=== PATIENT | male | born 1950 | race Caucasian/White ===

== ENCOUNTER 2017-05-30 17:38 | Inpatient (IN) | payer MEDICARE, MEDICAID ==
[2017-05-30] VITALS (10 sets, daily range): BP systolic 117–160; BP diastolic 70–94; PULSE 76–97; RESP 15–23; TEMP 99.1; O2SAT 94–100
[~2017-05-30] VITALS: Ht 175.3 cm; Wt 82.0 kg
[~2017-05-30 17:38] MED LIST: ALBU2.5I INH; AMAN100T PO; CARB25TA PO; CEFU1TAB43 PO; CETI10 PO; MIRA1.5T3 PO; MIRA50TA PO; MIRTA15 PO; MUCI600T PO; MULT-65 PO; POLY1.4S EACH EYE; PROT40TA PO; SENN8.6T15 PO; TYLE500T PO; VITA400C28 PO
[2017-05-30] MEDS ORDERED: SODIUM CHLOR 0.9% 1000 ML INJ 1,000 ML IV ONE (17:43)
[2017-05-30] MEDS ORDERED: LORazepam 2 MG/ML VIAL ONE (17:45)
[2017-05-30] MEDS ORDERED: LORazepam 2 MG/ML VIAL IV PUSH ONE ×3 (17:45→21:15)
--- NOTE | 2017-05-30 18:01 | PD ---
HPI Chief Complaint: altered mental status Time Seen by Provider: 17:43 Travel History International Travel<30 days: No Contact w/Intl Traveler<30days: No History of Present Illness HPI 66-year-old male presents by ambulance as a stroke alert for acute mental status change. The ambulance team was at the facility to lemon picker some on that fell when they grabbed them. They state that 10 minutes before they got there at approximately 508 the staff thought he was less responsive. For them on exam he had a right sided facial droop and would not follow commands so they instituted a stroke alert. History was very limited and they stated per staff he has been there since 2008 and this was an acute change where he normally is more interactive. PFSH Past Medical History Narrative Medical By records Arthritis: No Blood Disorders: No Anxiety: No Depression: No Cancer: No Cardiac Catheterization: Yes Cardiovascular Problems: Yes (PERICARDITIS) Cerebral Palsy: Yes Chemotherapy: No Cerebrovascular Accident: No Developmental Delay: Yes Diminished Hearing: No Endocrine: No Genitourinary: Yes (INCONTINENT) Immune Disorder: No Musculoskeletal: Yes (TREMORS) Neurologic: Yes (HYPOXIC BRAIN INJURY AT ) Parkinson's Disease: Yes Psychiatric: Yes (MENTAL IMPAIRMENT) Reproductive: No Respiratory: No Integumentary: Yes (CELLULITIS) Radiation Therapy: No Seizures: No Past Surgical History Narrative Surgical By records Abdominal Surgery: No AICD: No Body Medical Devices: PARKINSONS Cardiac Surgery: No Ear Surgery: No Endocrine Surgery: No Eye Surgery: No Genitourinary Surgery: No Gynecologic Surgery: No Joint Replacement: No Oral Surgery: Yes (ADDENOIDECTOMY IN 1960) Pacemaker: No Thoracic Surgery: No Tonsillectomy: Yes Other Surgery: Yes (ADENOIDECTOMY) Social History Narrative Social History By records Alcohol Use: No Tobacco Use: Yes Substance Use: No Allergies-Medications (Allergen,Severity, Reaction): Coded Allergies: Haldol (Verified Allergy, Unknown, 05/30/17) *MDRO Multi-Drug Resistant Organism (Verified Adverse Reaction, Unknown, ) 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 Surveillance cultures ordered by Infection Control per Protocol. VRE Screen negative on 08/07/2015 and POSITIVE on08/10/2015. Isolation for MDRO appropriate. Reported Meds & Prescriptions Reported Meds & Active Scripts Active Reported Zyrtec (Cetirizine HCl) 10 Mg Tablet 10 Mg PO HS Vitamin D3 (Cholecalciferol) 5,000 Unit Cap 5,000 Units PO DAILY Sinemet (Carbidopa-Levodopa) 25-100 Mg Tab 2 Tab PO QID Senokot (Sennosides) 8.6 Mg Tab 8.6 Mg PO DAILY PRN Remeron (Mirtazapine) 15 Mg Tab 15 Mg PO HS Artificial Tears Opth Drops (Polyvinyl Alcohol) 1.4% Soln 1 Drop EACH EYE Q8HR PRN Pantoprazole (Pantoprazole Sodium) 20 Mg Tab 20 Mg PO DAILY Normal Saline Flush For F (Sodium Chloride Flush) 0.9 % Inj 10 Ml IV FLUSH DAILY Normal Saline I.v. Flush (Sodium Chloride Flush) 0.9 % Inj 10 Ml IV FLUSH TID Thera-Tabs M (Multiple Vitamins W/ Minerals) 1 Tab Tab 1 Tab PO DAILY Mirapex (Pramipexole Dihydrochloride) 1.5 Mg Tab 1.5 Mg PO QID Myrbetriq (Mirabegron) 50 Mg Tab 50 Mg PO HS Lisinopril 5 Mg Tab 5 Mg PO DAILY Invanz Inj (Ertapenem) 1 Gm Vial 1 Gm IV DAILY Tamsulosin (Tamsulosin HCl) 0.4 Mg Cap 0.4 Mg PO DAILY Duoneb (Ipratropium-Albuterol Neb) 0.5-2.5 Mg/3 Ml Neb 1 Nebule INH Q6HR NEB PRN Coumadin (Warfarin) 2 Mg Tab 2 Mg PO DAILY @ 1700 Coumadin (Warfarin) 5 Mg Tab 5 Mg PO DAILY @ 1700 Atorvastatin (Atorvastatin Calcium) 20 Mg Tab 20 Mg PO HS Amantadine (Amantadine HCl) 100 Mg Tab 100 Mg PO BID Albuterol Neb (Albuterol Sulfate) 2.5 Mg/3 Ml Neb 2.5 Mg NEB Q4HR NEB PRN Mapap (Acetaminophen) 500 Mg Tab 1,000 Mg PO Q4HR PRN Review of Systems ROS Limitations: Altered Mental Status Physical Exam Exam Limitations: Altered Mental Status Narrative GENERAL: Patient unable to sit still SKIN: Warm and dry. HEAD:atraumatic. EYES: No injection or drainage. Pupils equal ENT: No nasal drainage noted. NECK: Supple, trachea midline. CARDIOVASCULAR: Regular rate and rhythm RESPIRATORY: Breath sounds equal bilaterally at apices. No accessory muscle use. GASTROINTESTINAL: Abdomen soft, nondistended. NEUROLOGICAL: Eyes open to voice, moves all extremities, will squeeze both hands when asked, nonverbal Data Data Last Documented VS Vital Signs Date Time Temp Pulse Resp B/P Pulse Ox O2 Delivery O2 Flow Rate FiO2 05/30/17 18:25 77 18 122/70 94 Room Air Orders Diet Npo (05/30/17 Dinner) Activity Bed Rest (05/30/17 ) Electrocardiogram (05/30/17 ) I-Stat Creatinine (05/30/17 17:43) I-Stat Profile (05/30/17 17:43) Prothrombin Time / Inr (Pt) (05/30/17 17:43) Act Partial Throm Time (Ptt) (05/30/17 17:43) Complete Blood Count With Diff (05/30/17 17:43) Fibrinogen (05/30/17 17:43) Creatine Kinase (Cpk) (05/30/17 17:43) Troponin I (05/30/17 17:43) Ua Includes Microscopic (05/30/17 17:43) Drug Screen, Random Urine (05/30/17 17:43) Type And Screen (05/30/17 17:43) Ct Brain W/O Iv Contrast(Rout) (05/30/17 ) Chest, Single Ap (05/30/17 ) Blood Glucose (05/30/17 17:43) Ecg Monitoring (05/30/17 17:43) Neuro Checks Q2HX12,Q4H (05/30/17 17:43) Nursing Bedside Swallow Assess .ONCE (05/30/17 17:43) Iv Access Insert/Monitor (05/30/17 17:43) NPO (05/30/17 17:43) Oximetry (05/30/17 17:43) Sodium Chlor 0.9% 1000 Ml Inj (Ns 1000 M (05/30/17 17:43) Cath For Specimen (05/30/17 17:43) Comprehensive Metabolic Panel (05/30/17 17:43) Lactic Acid Sepsis Protocol (05/30/17 17:43) Magnesium (Mg) (05/30/17 17:43) Phosphorus (Po4) (05/30/17 17:43) Blood Culture (05/30/17 17:43) Lorazepam Inj (Ativan Inj) (05/30/17 17:45) Lorazepam Inj (Ativan Inj) (05/30/17 17:45) Lorazepam Inj (Ativan Inj) (05/30/17 18:00) Mri Brain W/O Contrast (05/30/17 18:09) Mra Brain W/O Contrast (Cow) (05/30/17 18:09) Consult Infectious Disease (05/30/17 ) Urine Culture (05/30/17 18:55) Labs Laboratory Tests Test 05/30/17 05/30/17 17:43 18:25 White Blood Count 6.8 TH/MM3 Red Blood Count 4.11 MIL/MM3 Hemoglobin 13.2 GM/DL Bedside Hemoglobin 13.6 G/DL Hematocrit 38.5 % Bedside Hematocrit 40.0 % Mean Corpuscular Volume 93.7 FL Mean Corpuscular Hemoglobin 32.1 PG Mean Corpuscular Hemoglobin 34.3 % Concent Red Cell Distribution Width 13.6 % Platelet Count 212 TH/MM3 Mean Platelet Volume 8.0 FL Neutrophils (%) (Auto) 66.5 % Lymphocytes (%) (Auto) 19.9 % Monocytes (%) (Auto) 9.3 % Eosinophils (%) (Auto) 3.8 % Basophils (%) (Auto) 0.5 % Neutrophils # (Auto) 4.5 TH/MM3 Lymphocytes # (Auto) 1.4 TH/MM3 Monocytes # (Auto) 0.6 TH/MM3 Eosinophils # (Auto) 0.3 TH/MM3 Basophils # (Auto) 0.0 TH/MM3 CBC Comment DIFF FINAL Differential Comment Prothrombin Time 21.9 SEC Prothromb Time International 1.9 RATIO Ratio Activated Partial 33.4 SEC Thromboplast Time Fibrinogen 439 mg/dL Bedside Sodium 138 MMOL/L Sodium Level 136 MEQ/L Bedside Potassium 5.2 MMOL/L Potassium Level 5.1 MEQ/L Bedside Chloride 101 MMOL/L Chloride Level 104 MEQ/L Carbon Dioxide Level 25.1 MEQ/L Anion Gap 7 MEQ/L Bedside Blood Urea Nitrogen 38 MG/DL Blood Urea Nitrogen 28 MG/DL Creatinine 1.82 MG/DL Bedside Creatinine 1.7 MG/DL Estimat Glomerular Filtration 38 ML/MIN Rate Bedside Glucose 110 MG/DL Random Glucose 104 MG/DL Calcium Level 9.2 MG/DL Phosphorus Level 2.9 MG/DL Magnesium Level 2.4 MG/DL Total Bilirubin 0.5 MG/DL Aspartate Amino Transf 45 U/L (AST/SGOT) Alanine Aminotransferase 11 U/L (ALT/SGPT) Alkaline Phosphatase 84 U/L Total Creatine Kinase 141 U/L Troponin I LESS THAN 0.02 NG/ML Total Protein 7.6 GM/DL Albumin 3.7 GM/DL Urine Color YELLOW Urine Turbidity HAZY Urine pH 6.5 Urine Specific Clark 1.017 Urine Protein 30 mg/dL Urine Glucose (UA) NEG mg/dL Urine Ketones NEG mg/dL Urine Occult Blood SMALL Urine Nitrite NEG Urine Bilirubin NEG Urine Urobilinogen LESS THAN 2.0 MG/DL Urine Leukocyte Esterase MOD Urine RBC 86 /hpf Urine WBC 18 /hpf Urine Amorphous Sediment RARE Urine Bacteria RARE /hpf Urine Hyaline Casts 3 /lpf Urine Mucus FEW /lpf Urine Opiates Screen NEG Urine Barbiturates Screen NEG Urine Amphetamines Screen NEG Urine Benzodiazepines Screen NEG Urine Cocaine Screen NEG Urine Cannabinoids Screen NEG MDM Medical Decision Making Medical Screen Exam Complete: Yes Emergency Medical Condition: Yes Medical Record Reviewed: Yes (past history confirm, prior UTIs noted and admissions reviewed) Interpretation(s) ct brain discussed with the radiologist and looks stable but limited some by motion artifact 1805 CBC & BMP Diagram 05/30/17 17:43 inr 1.9 Last [address] 05/30/17 0000 Signed Impressions: Service Date/Time: Tuesday, May 30, 2017 17:53 - CONCLUSION: No acute disease. Glenn Bernard MD Chest X-Ray 05/30/17 0000 Signed Impressions: Service Date/Time: Tuesday, May 30, 2017 18:01 - CONCLUSION: No acute disease. Glenn Bernard MD EKG shows NSR, no ST elevation or depression, and no arrhythmias. No significant T-wave inversions. Differential Diagnosis UTI, hyponatremia, bleed, renal failure, encephalopathic..... Narrative Course Unable to perform stroke scale on patient given he cannot consistently follow commands. He is moving all extremities and agitated at this time. Ativan will be given to coordinate CT imaging and will discuss with neurology On review of [facility] records he is on Invanz and Bactrim for UTI. In the hospital he was admitted for prior encephalopathy associated with urinary tract infections. He has past history of Parkinson's and prior anoxic brain injury and CP since , this complicates his history. Will continue to monitor. Patient is now sedated but will open eyes to voice after Ativan to coordinate CT. Awaiting MRIs Physician Communication Physician Communication Dr. strange agrees given unable to appropriately exam and moving all extremities and on Coumadin and difficult to determine baseline not a TPA candidate dr strange updated and mri and mra brain ordered stat dr colby to follow lactic acid and mris and admit Tri Gonzalez MD May 30, 2017 18:01
[2017-05-30 18:02] LABS: I-STAT SODIUM 138 MMOL/L (138-146)
[2017-05-30 18:03] LABS: AUTOMATED NEUTROPHIL # 4.5 TH/MM3 (1.8-7.7); BASOPHIL % 0.5 % (0.0-2.0); EOSINOPHIL # 0.3 TH/MM3 (0-0.4); EOSINOPHIL % 3.8 % (0.0-4.0); HEMATOCRIT 38.5 % (39.0-51.0); HEMO FLAGS DIFF FINAL; I-STAT POTASSIUM 5.2 MMOL/L (3.5-4.9); LYMPH % 19.9 % (9.0-44.0); LYMPHOCYTE # 1.4 TH/MM3 (1.0-4.8); MEAN CELL VOLUME 93.7 FL (80.0-100.0); MEAN CORPUSCULAR HEMOGLOBIN 32.1 PG (27.0-34.0); MEAN CORPUSCULAR HGB CONC 34.3 % (32.0-36.0); MONO % 9.3 % (0.0-8.0); NEUT % 66.5 % (16.0-70.0); PLATELET COUNT 212 TH/MM3 (150-450); RED BLOOD COUNT 4.11 MIL/MM3 (4.50-5.90); RED CELL DISTRIBUTION WIDTH 13.6 % (11.6-17.2); WHITE BLOOD COUNT 6.8 TH/MM3 (4.0-11.0)
--- NOTE | 2017-05-30 18:06 | RADRPT ---
EXAM DATE/TIME: 05/30/2017 17:53 [facility] COMPARISON: No previous studies available for comparison. INDICATIONS : Stroke Alert, right facial droop,left side weakness. RADIATION DOSE: 37.49 CTDIvol (mGy) This report was called by Dr. Bernard to Dr. Gonzalez at 6: 03 PM May 30, 2017 MEDICAL HISTORY : Non-responsive. SURGICAL HISTORY : Non-responsive. ENCOUNTER: Initial ACUITY: 1 day PAIN SCALE: 0/10 LOCATION: cranial TECHNIQUE: Multiple contiguous axial images were obtained of the head. Using automated exposure control and adj ustment of the mA and/or kV according to patient size, radiation dose was kept as low as reasonably a chievable to obtain optimal diagnostic quality images. DICOM format image data is available electro nically for review and comparison. FINDINGS: The examination demonstrates patchy hypodensity in the periventricular white matter and bilateral aurora trum semiovale which is stable and characteristic of chronic microvascular ischemic disease. There is no evidence of acute infarct, hemorrhage or mass. Remote right cerebellar infarct. No fractures. CONCLUSION: No acute disease. Glenn Bernard MD on May 30, 2017 at 18:02 Board Certified Radiologist. This report was verified electronically.
--- NOTE | 2017-05-30 18:12 | RADRPT ---
EXAM DATE/TIME: 05/30/2017 18:01 [facility] COMPARISON: CHEST SINGLE AP, August 10, 2015, 5:51. INDICATIONS : Stroke alert. MEDICAL HISTORY : None. SURGICAL HISTORY : None. ENCOUNTER: Initial ACUITY: 1 day PAIN SCORE: Non-responsive. LOCATION: Bilateral chest FINDINGS: There is linear scarring at the bases and cardiomegaly. Osseous structures are intact. CONCLUSION: No acute disease. Glenn Bernard MD on May 30, 2017 at 18:10 Board Certified Radiologist. This report was verified electronically.
[2017-05-30 18:22] LABS: ALT (GPT) 11 U/L (12-78); ANION GAP 7 MEQ/L (5-15); AST (GOT) 45 U/L (15-37); BICARBONATE 25.1 MEQ/L (21.0-32.0); BLOOD UREA NITROGEN 28 MG/DL (7-18); CHLORIDE 104 MEQ/L (98-107); GLOMERULAR FILTRATION RATE 38 ML/MIN (>89); MAGNESIUM 2.4 MG/DL (1.5-2.5); SODIUM (NA) 136 MEQ/L (136-145)
[2017-05-30 18:23] LABS: POTASSIUM 5.1 MEQ/L (3.5-5.1)
[2017-05-30 18:25] LABS: ALKALINE PHOSPHATASE 84 U/L (45-117); CREATINE KINASE 141 U/L (39-308); TOTAL BILIRUBIN ADULT 0.5 MG/DL (0.2-1.0)
[2017-05-30 18:38] LABS: APTT (PATIENT) 33.4 SEC (24.3-30.1); INTERNATIONAL NORMALIZED RATIO 1.9 RATIO; PROTHROMBIN TIME - PATIENT 21.9 SEC (9.8-11.6)
[2017-05-30] MEDS ORDERED: AMAN100T PO (18:39)
[2017-05-30] MEDS ORDERED: ALBU0.08 NEB (18:39)
[2017-05-30] MEDS ORDERED: MAPA500T PO (18:39)
[2017-05-30] MEDS ORDERED: COUM5TAB PO (18:42)
[2017-05-30] MEDS ORDERED: ATOR20TA15 PO (18:42)
[2017-05-30] MEDS ORDERED: COUM2TAB PO (18:43)
[2017-05-30] MEDS ORDERED: TAMS0.4C4 PO (18:45)
[2017-05-30] MEDS ORDERED: IPRASOL INH (18:45)
[2017-05-30] MEDS ORDERED: ERTA1P IV (18:47)
[2017-05-30 18:53] LABS: BACTERIA, URINE RARE /hpf; BLOOD, URINE SMALL (NEG); GLUCOSE,URINE NEG (NEG); HYALINE CAST, URINE 3 /lpf (RARE); KETONE, URINE NEG (NEG); MUCUS URINE FEW /lpf (OCC); NITRITE,URINE NEG (NEG); PH, URINE 6.5 (5.0-8.5); URINE COLOR YELLOW (YELLW/STRAW)
[2017-05-30] MEDS ORDERED: MIRA50TA PO (18:53)
[2017-05-30] MEDS ORDERED: NORMINJ11 IV FLUSH (18:53)
[2017-05-30] MEDS ORDERED: MIRA1.5T3 PO (18:53)
[2017-05-30] MEDS ORDERED: NORM0.9I4 IV FLUSH (18:53)
[2017-05-30] MEDS ORDERED: LISI-519 PO (18:53)
[2017-05-30] MEDS ORDERED: MULT-71 PO (18:53)
[2017-05-30 18:56] LABS: AMPHETAMINE, URINE NEG (NEG); BARBITURATES, URINE NEG (NEG); COCAINE, URINE NEG (NEG)
[2017-05-30] MEDS ORDERED: SENO8.6T5 PO (18:57)
[2017-05-30] MEDS ORDERED: POLY99.0 EACH EYE (18:57)
[2017-05-30] MEDS ORDERED: REME15TA PO (18:57)
[2017-05-30] MEDS ORDERED: PANT20TA2 PO (18:57)
[2017-05-30] MEDS ORDERED: SINE25TA PO (18:57)
[2017-05-30] MEDS ORDERED: CETI-1 PO (19:01)
[2017-05-30] MEDS ORDERED: CHOL5000 PO (19:01)
--- NOTE | 2017-05-30 19:18 | PD ---
Physical Exam Narrative General: The patient is a well-developed well-nourished male slightly agitated on my arrival to the room, O2 saturations are 100%, however the patient appears to have some retractions. Head and Neck exam: Head is normocephalic atraumatic. Cardiovascular: Regular rate and rhythm without murmurs, gallops, or rubs. No pulse deficit to the extremities and simultaneous auscultation and palpation of his radial artery. Lungs: Decreased breath sounds in the bases bilaterally with retractions noted, soft expiratory wheezes audible the left side. No rhonchi, no crackles. Abdomen: Soft, without tenderness to palpation in all 4 quadrants of the abdomen. No guarding, rebound, or rigidity. Normal bowel sounds are audible. No tenderness on palpation of McBurney's point. Neurologic Exam: The patient is slightly agitated, no focal findings on examination, no evidence of facial asymmetry, moving all extremities equally. Skin Exam: No rash noted. Intact skin that is warm and dry. Data Data Last Documented VS Vital Signs Date Time Temp Pulse Resp B/P Pulse Ox O2 Delivery O2 Flow Rate FiO2 05/30/17 18:25 77 18 122/70 94 Room Air Orders Diet Npo (05/30/17 Dinner) Activity Bed Rest (05/30/17 ) Electrocardiogram (05/30/17 ) I-Stat Creatinine (05/30/17 17:43) I-Stat Profile (05/30/17 17:43) Prothrombin Time / Inr (Pt) (05/30/17 17:43) Act Partial Throm Time (Ptt) (05/30/17 17:43) Complete Blood Count With Diff (05/30/17 17:43) Fibrinogen (05/30/17 17:43) Creatine Kinase (Cpk) (05/30/17 17:43) Troponin I (05/30/17 17:43) Ua Includes Microscopic (05/30/17 17:43) Drug Screen, Random Urine (05/30/17 17:43) Type And Screen (05/30/17 17:43) Ct Brain W/O Iv Contrast(Rout) (05/30/17 ) Chest, Single Ap (05/30/17 ) Blood Glucose (05/30/17 17:43) Ecg Monitoring (05/30/17 17:43) Neuro Checks Q2HX12,Q4H (05/30/17 17:43) Nursing Bedside Swallow Assess .ONCE (05/30/17 17:43) Iv Access Insert/Monitor (05/30/17 17:43) NPO (05/30/17 17:43) Oximetry (05/30/17 17:43) Sodium Chlor 0.9% 1000 Ml Inj (Ns 1000 M (05/30/17 17:43) Cath For Specimen (05/30/17 17:43) Comprehensive Metabolic Panel (05/30/17 17:43) Lactic Acid Sepsis Protocol (05/30/17 17:43) Magnesium (Mg) (05/30/17 17:43) Phosphorus (Po4) (05/30/17 17:43) Blood Culture (05/30/17 17:43) Lorazepam Inj (Ativan Inj) (05/30/17 17:45) Lorazepam Inj (Ativan Inj) (05/30/17 17:45) Lorazepam Inj (Ativan Inj) (05/30/17 18:00) Mri Brain W/O Contrast (05/30/17 18:09) Mra Brain W/O Contrast (Cow) (05/30/17 18:09) Consult Infectious Disease (05/30/17 ) Urine Culture (05/30/17 18:55) (Hub Use Only)Inp Phy Cons/Ref (05/30/17 ) Ceftriaxone Inj (Rocephin Inj) (05/30/17 19:30) Lorazepam Inj (Ativan Inj) (05/30/17 21:15) Sodium Chloride 0.9% Flush (Ns Flush) (05/30/17 21:15) Albuterol-Ipratropium Neb (Duoneb Neb) (05/30/17 21:15) Admit Order (Ed Use Only) (05/30/17 21:21) Labs Laboratory Tests Test 05/30/17 05/30/17 05/30/17 05/30/17 17:43 18:21 18:25 18:31 White Blood Count 6.8 TH/MM3 Red Blood Count 4.11 MIL/MM3 Hemoglobin 13.2 GM/DL Bedside Hemoglobin 13.6 G/DL Hematocrit 38.5 % Bedside Hematocrit 40.0 % Mean Corpuscular Volume 93.7 FL Mean Corpuscular Hemoglobin 32.1 PG Mean Corpuscular Hemoglobin 34.3 % Concent Red Cell Distribution Width 13.6 % Platelet Count 212 TH/MM3 Mean Platelet Volume 8.0 FL Neutrophils (%) (Auto) 66.5 % Lymphocytes (%) (Auto) 19.9 % Monocytes (%) (Auto) 9.3 % Eosinophils (%) (Auto) 3.8 % Basophils (%) (Auto) 0.5 % Neutrophils # (Auto) 4.5 TH/MM3 Lymphocytes # (Auto) 1.4 TH/MM3 Monocytes # (Auto) 0.6 TH/MM3 Eosinophils # (Auto) 0.3 TH/MM3 Basophils # (Auto) 0.0 TH/MM3 CBC Comment DIFF FINAL Differential Comment Prothrombin Time 21.9 SEC Prothromb Time International 1.9 RATIO Ratio Activated Partial 33.4 SEC Thromboplast Time Fibrinogen 439 mg/dL Bedside Sodium 138 MMOL/L Sodium Level 136 MEQ/L Bedside Potassium 5.2 MMOL/L Potassium Level 5.1 MEQ/L Bedside Chloride 101 MMOL/L Chloride Level 104 MEQ/L Carbon Dioxide Level 25.1 MEQ/L Anion Gap 7 MEQ/L Bedside Blood Urea Nitrogen 38 MG/DL Blood Urea Nitrogen 28 MG/DL Creatinine 1.82 MG/DL Bedside Creatinine 1.7 MG/DL Estimat Glomerular Filtration 38 ML/MIN Rate Bedside Glucose 110 MG/DL Random Glucose 104 MG/DL Calcium Level 9.2 MG/DL Phosphorus Level 2.9 MG/DL Magnesium Level 2.4 MG/DL Total Bilirubin 0.5 MG/DL Aspartate Amino Transf 45 U/L (AST/SGOT) Alanine Aminotransferase 11 U/L (ALT/SGPT) Alkaline Phosphatase 84 U/L Total Creatine Kinase 141 U/L Troponin I LESS THAN 0.02 NG/ML Total Protein 7.6 GM/DL Albumin 3.7 GM/DL Blood Type A POSITIVE Antibody Screen NEGATIVE Blood Bank Comment Urine Color YELLOW Urine Turbidity HAZY Urine pH 6.5 Urine Specific [place] 1.017 Urine Protein 30 mg/dL Urine Glucose (UA) NEG mg/dL Urine Ketones NEG mg/dL Urine Occult Blood SMALL Urine Nitrite NEG Urine Bilirubin NEG Urine Urobilinogen LESS THAN 2.0 MG/DL Urine Leukocyte Esterase MOD Urine RBC 86 /hpf Urine WBC 18 /hpf Urine Amorphous Sediment RARE Urine Bacteria RARE /hpf Urine Hyaline Casts 3 /lpf Urine Mucus FEW /lpf Urine Opiates Screen NEG Urine Barbiturates Screen NEG Urine Amphetamines Screen NEG Urine Benzodiazepines Screen NEG Urine Cocaine Screen NEG Urine Cannabinoids Screen NEG Lactic Acid Level 0.9 mmol/L [facility] Medical Record Reviewed: Yes Supervised Visit with SHILPI: No Interpretation(s) Last Impressions Head CT 05/30/17 0000 Signed Impressions: Service Date/Time: Tuesday, May 30, 2017 17:53 - CONCLUSION: No acute disease. Glenn Bernard MD Chest X-Ray 05/30/17 0000 Signed Impressions: Service Date/Time: Tuesday, May 30, 2017 18:01 - CONCLUSION: No acute disease. Glenn Bernard MD Narrative Course During the course of the patients emergency department visit, the patients history, examination, and differential diagnosis were reviewed with the patient. The patient had IV access obtained and blood work sent for analysis. The patient's case was checked out to me by Dr. Gonzalez at the conclusion of her shift. The patient came in as a reported stroke alert due to a change in mental status. Dr. Gonzalez has been in close communication with regarding this patient's case. The patient was not considered to be a candidate for TPA due to being anticoagulated with Coumadin and the overall clinical picture which represented more of a change in mentation then focal findings consistent with an acute stroke. The patient was initially provided normal saline at 70 mL per hour. The patient was noted to be agitated and was given Ativan 1 mg IV in order to obtain his CT scan of the brain. The patients laboratory studies were reviewed and remarkable for a white count of 6.8, hemoglobin 13.2, platelets 212 with 9.3 monocytes, CMP is remarkable for a potassium of 5.1, BUN 28, creatinine 1.82, glucose 110, AST 45, ALT 11, CPK 141, troponin I less than 0.02, lactic acid 0.9, PT 21.9, PTT 33.4, fibrinogen level is 439, urinalysis shows 30 protein, small occult blood, moderate leukocyte esterase, 86 rbc's, 18 wbc's, rare bacteria. Urine drug screen is negative. The patient was given Rocephin 1 g IV due to the suspicious urinalysis findings for urinary tract infection and the patient's known history of having UTIs in the past that caused altered mentation in the patient. Radiology studies were reviewed and remarkable for a chest x-ray that shows no evidence of acute disease. CT scan of the brain shows no acute disease. And MRI/MRA of the brain has been ordered per the request of . An MRI was attempted, however the patient became agitated. An attempt was made to reduce it at the patient with another milligram of Ativan IV. The patient continued to be agitated. The patient reported shortness of breath with lying flat. The patient was brought back to the emergency department and reexamined by me. He was noted to have retractions with expiratory wheezes noted. The patient was given DuoNeb 3. The patient has no focal findings on his examination at this time. The MRI at this point will be held until his acute agitation, altered mentation is improved and/or additional sedation can be provided for MRI completion. [facility] The patients results were discussed with the patient, including the plan of care. I explained that further testing and/ or monitoring is indicated based on the patients history, examination, and/ or laboratory findings. Therefore, I recommended admission for additional evaluation. The patient expressed understanding and was agreeable with this plan. The patient was admitted to the hospital in guarded condition and sent to a bed under the care of the [facility] service. Physician Communication Physician Communication The patient's case was discussed with Dr. Jolly who did agree to admit the patient for further evaluation and treatment at this time. Diagnosis Primary Impression: Altered mental status Qualified Code: R41.0 - Disorientation Additional Impression: Urinary tract infection Admitting Information Admitting Physician Requests: it Selena Hopson MD May 30, 2017 19:18
[2017-05-30] MEDS ORDERED: cefTRIAXone INJ 1,000 MG in SODIUM CHLORIDE 0.9% INJ 100 ML IV ONE (19:30)
[2017-05-30] MEDS: RESP: ALBUTEROL 2.5 MG/IPRATROPIUM 0.5 MG NEB (SCH) INH ×4 (21:15→23:23)
[2017-05-30] MEDS ORDERED: SODIUM CHLORIDE 0.9% FLUSH 10 ML FLUSH IVF PRN (21:15)
[2017-05-30] MEDS ORDERED: NALOXONE HCL 0.4 MG/ML AMP IV PRN (21:30)
[2017-05-30] MEDS ORDERED: SODIUM CHLORIDE 0.9% FLUSH 10 ML FLUSH IV FLUSH PRN (21:30)
[2017-05-30] MEDS ORDERED: RESP: ALBUTEROL 2.5 MG/IPRATROPIUM 0.5 MG NEB (PRN) NEB (22:00)
[2017-05-30] MEDS: CIPROFLOXACIN 400 MG PREMIX 200 ML IV SCH (23:01)
[2017-05-30] MEDS: RESP: ALBUTEROL 2.5 MG/IPRATROPIUM 0.5 MG NEB (SCH) NEB ×2 (23:14→23:23)
[2017-05-30] MEDS ORDERED: FLUMAZENIL 0.5 MG/5 ML VIAL IV PUSH ONE (23:30)
--- NOTE | 2017-05-30 23:37 | HHI.HP ---
[facility] Unknown Admission Diagnosis AMS, UTI, R/O CVA Diagnoses: Chief Complaint: AMS Travel History International Travel<30 Days: No Contact w/Intl Traveler <30 Da: No Traveled to Known Affected Are: No History of Present Illness Written by XIOMARA Santos acting as scribe for [Rik] on 05/30/17 at 23: 37. 66 y/o male with a history of anoxic brain injury at , cerebral palsy, Parkinson, copd, HTN and HLD was brought to the ED as a stroke alert from a nursing facility. Per ED report patient was noted to have a right facial droop and unable to follow commands. Patient is not verbal so history and ROS are limited. No family is at bedside upon examination. The patient was examined at beside, non verbal and not following commands. It is not clear what the patients baseline is. He does have tremors due to Parkinson disease. He is able to slightly arouse to sternal rub, he was given Ativan prior to MRI, and according to ED physician patient was non verbal and agitated at this time. He was having wheezing and tachypnea on examination, additional DuoNeb was given along with Solumedral 125mg IV. Patient appeared to be having a panic attack. Once the room was cleared of people, the patient began to relax. Respirations began to normalize. He will be transferred to the Unit for closer monitoring. According to the EMR patient did have a UTI on 05/21/17 and was being treated with Invanz at the long term. Last hospital visit was 2014 for PNA, records reviewed. Dr. Cavanaugh did see patient in ED and felt he was not a TPA candidate due to history and mental status. He feels the AMS is due to UTI. Review of Systems ROS Limitations: Other ( Limited secondary to history of anoxic brain injury.) Past Family Social History Past Medical History Per EMR Anoxic Brain Injury as a child Cerebral Palsy Parkinson's COPD HLD Past Surgical History Per EMR Tonsillectomy Left Hand Pin Placement Reported Medications Reported Meds & Active Scripts Active Reported Zyrtec (Cetirizine HCl) 10 Mg Tablet 10 Mg PO HS Vitamin D3 (Cholecalciferol) 5,000 Unit Cap 5,000 Units PO DAILY Sinemet (Carbidopa-Levodopa) 25-100 Mg Tab 2 Tab PO QID Senokot (Sennosides) 8.6 Mg Tab 8.6 Mg PO DAILY PRN Remeron (Mirtazapine) 15 Mg Tab 15 Mg PO HS Artificial Tears Opth Drops (Polyvinyl Alcohol) 1.4% Soln 1 Drop EACH EYE Q8HR PRN Pantoprazole (Pantoprazole Sodium) 20 Mg Tab 20 Mg PO DAILY Normal Saline Flush For F (Sodium Chloride Flush) 0.9 % Inj 10 Ml IV FLUSH DAILY Normal Saline I.v. Flush (Sodium Chloride Flush) 0.9 % Inj 10 Ml IV FLUSH TID Thera-Tabs M (Multiple Vitamins W/ Minerals) 1 Tab Tab 1 Tab PO DAILY Mirapex (Pramipexole Dihydrochloride) 1.5 Mg Tab 1.5 Mg PO QID Myrbetriq (Mirabegron) 50 Mg Tab 50 Mg PO HS Lisinopril 5 Mg Tab 5 Mg PO DAILY Invanz Inj (Ertapenem) 1 Gm Vial 1 Gm IV DAILY Tamsulosin (Tamsulosin HCl) 0.4 Mg Cap 0.4 Mg PO DAILY Duoneb (Ipratropium-Albuterol Neb) 0.5-2.5 Mg/3 Ml Neb 1 Nebule INH Q6HR NEB PRN Coumadin (Warfarin) 2 Mg Tab 2 Mg PO DAILY @ 1700 Coumadin (Warfarin) 5 Mg Tab 5 Mg PO DAILY @ 1700 Atorvastatin (Atorvastatin Calcium) 20 Mg Tab 20 Mg PO HS Amantadine (Amantadine HCl) 100 Mg Tab 100 Mg PO BID Albuterol Neb (Albuterol Sulfate) 2.5 Mg/3 Ml Neb 2.5 Mg NEB Q4HR NEB PRN Mapap (Acetaminophen) 500 Mg Tab 1,000 Mg PO Q4HR PRN Allergies: Coded Allergies: Haldol (Verified Allergy, Unknown, 05/30/17) *MDRO Multi-Drug Resistant Organism (Verified Adverse Reaction, Unknown, ) 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 Surveillance cultures ordered by Infection Control per Protocol. VRE Screen negative on 08/07/2015 and POSITIVE on08/10/2015. Isolation for MDRO appropriate. Active Ordered Medications Current Medications Medications (Trade) Dose Ordered Sig/Joann Route Start Time Stop Time Status Last Admin (NS 1000 ml Inj) 1,000 ml @ 70 mls/hr [id number] ONCE IV 05/30/17 17:43 05/31/17 08:00 05/30/17 18:53 (NS Flush) 2 ml UNSCH PRN IV FLUSH 05/30/17 21:30 (NS Flush) 2 ml BID IV FLUSH 05/31/17 09:00 Naloxone HCl 0.4 mg 0.4 mg UNSCH PRN IV 05/30/17 21:30 (Cipro 400 Mg Premix) 200 ml @ 200 mls/hr Q12H IV 05/30/17 23:00 05/30/17 23:01 Family History Unknown family history Social History Per EMR Patient was a pipe smoker, and he currently resides in a SNF Physical Exam Vital Signs Vital Signs Date Time Temp Pulse Resp B/P Pulse Ox O2 Delivery O2 Flow Rate FiO2 05/30/17 23:15 99 Nasal Cannula 3.00 05/30/17 18:25 77 18 122/70 94 Room Air 05/30/17 18:15 96 05/30/17 18:13 76 16 127/91 94 05/30/17 18:03 97 16 151/80 99 05/30/17 17:53 86 15 160/94 99 Room Air 05/30/17 17:43 89 16 127/79 97 Physical Exam GENERAL: This is a well-nourished, non verbal patient. SKIN: No rashes, ecchymoses or lesions. Cool and dry. HEAD: Atraumatic. Normocephalic. EYES: Pupils equal round and reactive. Extraocular motions intact. No scleral icterus. No injection or drainage. ENT: Nose without bleeding, purulent drainage or septal hematoma. Airway patent. NECK: Trachea midline. No JVD or lymphadenopathy. Supple, nontender, no meningeal signs. CARDIOVASCULAR: Regular rate and rhythm without murmurs, gallops, or rubs. RESPIRATORY: Clear to auscultation. Breath sounds equal bilaterally. Auditory wheezed, no rales, or rhonchi. GASTROINTESTINAL: Abdomen soft, non-tender, nondistended. No hepato-splenomegaly , or palpable masses. No guarding. MUSCULOSKELETAL: Upper extremity tremors, rigid bilateral upper extremities. No calf tenderness. NEUROLOGICAL: Awake and alert. Motor and sensory grossly within normal limits. Normal speech. Laboratory Laboratory Tests Test 05/30/17 05/30/17 05/30/17 05/30/17 17:43 18:21 18:25 18:31 White Blood Count 6.8 Red Blood Count 4.11 Hemoglobin 13.2 Bedside Hemoglobin 13.6 Hematocrit 38.5 Bedside Hematocrit 40.0 Mean Corpuscular Volume 93.7 Mean Corpuscular Hemoglobin 32.1 Mean Corpuscular Hemoglobin 34.3 Concent Red Cell Distribution Width 13.6 Platelet Count 212 Mean Platelet Volume 8.0 Neutrophils (%) (Auto) 66.5 Lymphocytes (%) (Auto) 19.9 Monocytes (%) (Auto) 9.3 Eosinophils (%) (Auto) 3.8 Basophils (%) (Auto) 0.5 Neutrophils # (Auto) 4.5 Lymphocytes # (Auto) 1.4 Monocytes # (Auto) 0.6 Eosinophils # (Auto) 0.3 Basophils # (Auto) 0.0 CBC Comment DIFF FINAL Differential Comment Prothrombin Time 21.9 Prothromb Time International 1.9 Ratio Activated Partial 33.4 Thromboplast Time Fibrinogen 439 Bedside Sodium 138 Sodium Level 136 Bedside Potassium 5.2 Potassium Level 5.1 Bedside Chloride 101 Chloride Level 104 Carbon Dioxide Level 25.1 Anion Gap 7 Bedside Blood Urea Nitrogen 38 Blood Urea Nitrogen 28 Creatinine 1.82 Bedside Creatinine 1.7 Estimat Glomerular Filtration 38 Rate Bedside Glucose 110 Random Glucose 104 Calcium Level 9.2 Phosphorus Level 2.9 Magnesium Level 2.4 Total Bilirubin 0.5 Aspartate Amino Transf 45 (AST/SGOT) Alanine Aminotransferase 11 (ALT/SGPT) Alkaline Phosphatase 84 Total Creatine Kinase 141 Troponin I LESS THAN 0.02 Total Protein 7.6 Albumin 3.7 Blood Type A POSITIVE Antibody Screen NEGATIVE Blood Bank Comment Urine Color YELLOW Urine Turbidity HAZY Urine pH 6.5 Urine Specific [place] 1.017 Urine Protein 30 Urine Glucose (UA) NEG Urine Ketones NEG Urine Occult Blood SMALL Urine Nitrite NEG Urine Bilirubin NEG Urine Urobilinogen LESS THAN 2.0 Urine Leukocyte Esterase MOD Urine RBC 86 Urine WBC 18 Urine Amorphous Sediment RARE Urine Bacteria RARE Urine Hyaline Casts 3 Urine Mucus FEW Urine Opiates Screen NEG Urine Barbiturates Screen NEG Urine Amphetamines Screen NEG Urine Benzodiazepines Screen NEG Urine Cocaine Screen NEG Urine Cannabinoids Screen NEG Lactic Acid Level 0.9 Date/Time Procedure Status Source Growth 05/30/17 18:30 Aerobic Blood Culture Received Blood Peripheral Pending 05/30/17 18:30 Anaerobic Blood Culture Received Blood Peripheral Pending Result Diagram: 05/30/17 1743 05/30/17 1743 Imaging Last Impressions Head CT 05/30/17 0000 Signed Impressions: Service Date/Time: Tuesday, May 30, 2017 17:53 - CONCLUSION: No acute disease. Glenn Bernard MD Chest X-Ray 05/30/17 0000 Signed Impressions: Service Date/Time: Tuesday, May 30, 2017 18:01 - CONCLUSION: No acute disease. Glenn Bernard MD Assessment and Plan Problem List: (1) Encephalopathy ICD Code: G93.40 Status: Acute (2) Urinary tract infection ICD Code: N39.0 Status: Acute (3) DUTCH (acute kidney injury) ICD Code: N17.9 Status: Acute (4) COPD exacerbation ICD Code: J44.1 Status: Acute Assessment and Plan 66 y/o male with a history of anoxic brain injury at , cerebral palsy, Parkinson, copd, HTN and HLD was brought to the ED as a stroke alert from a nursing facility. Encephalopathy, likely due to UTI, r/o CVA, patient was a stroke alert Head CT reviewed and unremarkable -MRI/ MRA of brain ordered, unable to complete due to agitation, will try again in AM -Neuro checks -Neurology consult, Dr. Funk -PT/OT/ST -Allow permissive HTN for now UTI, suspect e coli, no leukocytosis Abnormal UA -Urine culture pending -Ciprofloxacin Q12Hr IV -ID consult for recommendations, patient was receiving Invanz IV prior to hospital -CBC in AM COPD exacerbation -Duonebs scheduled and PRN -Solumedrol 125mg IV given x 1, then 40mg Q6hr -O2 as needed Acute Kidney Injury, Creatine 1.8, baseline 1.5, likely dehydration -1L bolus given in ED, Cont IVF -BMP in AM Chronic medical conditions: Hold home medications until mental status improves and Swallow eval complete DVT prophylaxis: DVTs GI prophylaxis: Protonix Discussed Condition With Patient, RN and ED physician Physician Certification 2 Midnight Certification Type: Admission for Inpatient Services Order for Inpatient Services The services are ordered in accordance with Medicare regulations or non- Medicare payer requirements, as applicable. In the case of services not specified as inpatient-only, they are appropriately provided as inpatient services in accordance with the 2-midnight benchmark. Estimated LOS (days): 3 days is the estimated time the patient will need to remain in the hospital, assuming treatment plan goals are met and no additional complications. Post-Hospital Plan: [facility] Irais Foster May 30, 2017 23:37
[2017-05-30] MEDS ORDERED: methylPREDNISolone SOD SUCC 125 MG/2 ML VIAL IV PUSH ONE (23:45)
[2017-05-31] VITALS (8 sets, daily range): BP systolic 98–125; BP diastolic 55–76; PULSE 91–109; RESP 16–31; TEMP 97.6–98.3; O2SAT 83–99
[2017-05-31] MEDS: PANTOPRAZOLE SODIUM 40 MG VIAL IV PUSH SCH ×2 (01:29→17:56)
[2017-05-31] MEDS: SODIUM CHLOR 0.9% 1000 ML INJ 1,000 ML IV SCH (02:06)
[2017-05-31] MEDS: methylPREDNISolone SOD SUCC 40 MG/1 ML VIAL IV PUSH SCH ×2 (07:08→11:30)
[2017-05-31] MEDS: RESP: ALBUTEROL 2.5 MG/IPRATROPIUM 0.5 MG NEB (SCH) NEB ×3 (07:32→21:33)
[2017-05-31 08:18] LABS: AUTOMATED NEUTROPHIL # 6.5 TH/MM3 (1.8-7.7); BASOPHIL % 0.1 % (0.0-2.0); EOSINOPHIL % 0.1 % (0.0-4.0); HEMATOCRIT 40.3 % (39.0-51.0); HEMO FLAGS DIFF FINAL; LYMPH % 6.1 % (9.0-44.0); LYMPHOCYTE # 0.4 TH/MM3 (1.0-4.8); MEAN CELL VOLUME 95.4 FL (80.0-100.0); MEAN CORPUSCULAR HEMOGLOBIN 31.3 PG (27.0-34.0); MEAN CORPUSCULAR HGB CONC 32.8 % (32.0-36.0); MONO % 0.9 % (0.0-8.0); NEUT % 92.8 % (16.0-70.0); PLATELET COUNT 209 TH/MM3 (150-450); RED BLOOD COUNT 4.22 MIL/MM3 (4.50-5.90); RED CELL DISTRIBUTION WIDTH 13.5 % (11.6-17.2)
[2017-05-31 08:46] LABS: BICARBONATE 23.9 MEQ/L (21.0-32.0)
[2017-05-31 08:50] LABS: POTASSIUM 4.5 MEQ/L (3.5-5.1)
[2017-05-31] MEDS: SODIUM CHLORIDE 0.9% FLUSH 10 ML FLUSH IV FLUSH SCH ×2 (09:00→21:00)
--- NOTE | 2017-05-31 09:00 | EKG ---
Date Performed: 05/30/2017 Time Performed: 19:01:52 PTAGE: 66 years EKG: Sinus rhythm NORMAL ECG PREVIOUS TRACING : 08/06/2015 21.34 DOCTOR: Karl Siu Interpretating Date/Time 05/31/2017 08:59:01
--- NOTE | 2017-05-31 10:09 | MB ---
cc: GARRET WATSON M.D. DATE OF CONSULTATION 05/31/2017 REASON FOR CONSULTATION The patient is seen in neurological consultation. He came to the emergency room last evening as a stroke alert. Apparently the case discussed with Dr. Smith and the patient was not a candidate for TPA. The patient lives in a nursing facility and apparently was noted to have some right facial weakness and not following commands. The neurologic status change was noted and he was brought to the hospital. At some point, there was a panic attack in the hospital. There was some respiratory distress treated with Solu-Medrol and DuoNebs. The patient has a history of: 1. Cerebral palsy 2. Parkinson's disease 3. Hypertension 4. COPD I believe I saw Favian Rene in the past in the office, but he has not been the patient for quite some time as far as I can remember. I have not had a chance to see any office records. NEUROLOGICAL EXAM The exam shows the patient to be somewhat lethargic, speech is dysarthric, but probably not acutely different as far as I can remember from previous evaluation. He only verbalized to some simple questions and answered them briefly. He followed simple commands and started gripping. There is some right facial flattening. He has a Parkinsonian tremor right more than left upper extremity. There is some spastic left hemiparesis that is probably baseline. He was able to count fingers, but in a very basic manner. He did not seem to know the place and did not respond to his age. His reflexes were essentially absent throughout. IMAGING The CT brain showed microvascular disease and old right cerebellar area of encephalomalacia. LABORATORY DATA The laboratory data includes a negative toxicology. INR is 1.9. Sodium normal, but potassium was 5.2 last evening. BUN 28, creatinine 1.82. Glucose 110. Urinalysis showing 86 RBCs and 18 WBCs. Serum WBC 6.8, hemoglobin 13.2, and platelet count 212 from yesterday. ASSESSMENT Acute and chronic encephalopathy, possible right hemiparetic event but difficult to be determined. Parkinson's is predominantly causing symptoms on the right. Apparent cerebral palsy with left hemiparesis. PLAN Continue the supportive medical care. He was started on Cipro for the UTI which may well be the main concern at this point. He was also given ceftriaxone. We will request an EEG. I will request a carotid ultrasound and depending upon clinical course might run an MRI of the brain, but he would be very poorly cooperative and want to avoid any more sedation at this point. Thank you for asking us to assist in his care. MD ALBERT Steiner/CHRISTOPHER /9:54 AM /10:03 AM
[2017-05-31] MEDS: CIPROFLOXACIN 400 MG PREMIX 200 ML IV SCH (11:29)
[2017-05-31] MEDS ORDERED: LORazepam 2 MG/ML VIAL IV PUSH ONE (13:00)
--- NOTE | 2017-05-31 13:07 | RADRPT ---
EXAM DATE/TIME: 05/31/2017 12:24 [place] COMPARISON: No previous studies available for comparison. INDICATIONS : Cerebrovascular accident. MEDICAL HISTORY : Parkinson's. Cerebral palsy. Pericarditis. SURGICAL HISTORY : Tonsillectomy. Cardiac cath. ENCOUNTER: Initial ACUITY: 1 day PAIN SCORE: Nonresponsive. LOCATION: Bilateral neck PEAK SYSTOLIC VELOCITIES (cm/sec): ICA/CCA RATIO: Right: 0.9 Left: 0.8 ICA: Right: 112 Left: 97 CCA: Right: 132 Left: 124 ECA: Right: 220 Left: 192 VERTEBRAL: Right: 83 antegrade Left: 69 antegrade Elevated flow velocities and ICA/CCA ratios have been found to correlate with increased degrees of vessel stenosis, calculated as percentage of diameter relative to a normal segment of distal ICA/CCA FINDINGS: RIGHT CAROTID: No significant stenosis is visualized. The waveforms are within normal limits. LEFT CAROTID: No significant stenosis is visualized. The waveforms are within normal limits. VERTEBRAL ARTERIES: Antegrade flow is seen in both vertebral arteries. MISCELLANEOUS: None. CONCLUSION: No hemodynamically significant stenosis in either carotid artery. Amandeep Stern MD on May 31, 2017 at 13:03 Board Certified Radiologist. This report was verified electronically.
[2017-05-31] MEDS ORDERED: MISCELLANEOUS PHARMACY INFORMATION XX PRN (13:15)
[2017-05-31] MEDS ORDERED: ASP: Path resistant to other antimicrobials, culture proven PRN (13:15)
--- NOTE | 2017-05-31 13:42 | PD.ID.CON ---
History of Present Illness Service ID Consult Requested By Dr Gonzalez Reason for Consult UTI Primary Care Physician Unknown Diagnoses: History of Present Illness 66 y/o male with a history of anoxic brain injury at , cerebral palsy, Parkinson, copd, HTN and HLD was brought to the ED as a stroke alert from a nursing facility Dr. Cavanaugh did see patient in ED and felt he was not a TPA candidate due to history and mental status. He feels the AMS is due to UTI. According to the EMR patient did have a UTI on 05/21/17 and was being treated with Invanz at the skilled nursing. Last hospital visit was 2014 for PNA, records reviewed. 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 Surveillance cultures ordered by Infection Control per Protocol. VRE Screen negative on 08/07/2015 and POSITIVE on08/10/2015. Isolation for MDRO appropriate. Past Medical History Anoxic Brain Injury as a child Cerebral Palsy Parkinson's COPD HLD Past Surgical History Tonsillectomy Left Hand Pin Placement Active Ordered Medications Medications where reviewed in EMR Antibiotics Include: Ertapenem Family History Unknown family history Social History per EMR Patient was a pipe smoker, and he currently resides in a SNF Physical Exam Vital Signs Vital Signs Date Time Temp Pulse Resp B/P Pulse Ox O2 Delivery O2 Flow Rate FiO2 05/31/17 07:34 99 Nasal Cannula 2.00 05/31/17 04:00 97.6 91 16 98/55 98 05/31/17 00:30 98.3 109 24 125/76 97 05/30/17 23:15 99 Nasal Cannula 3.00 05/30/17 22:45 99.1 82 20 157/85 100 05/30/17 21:00 80 23 121/70 100 Nasal Cannula 2 05/30/17 19:00 82 22 100 Nasal Cannula 2 05/30/17 19:00 82 21 117/74 100 Nasal Cannula 2 05/30/17 18:25 77 18 122/70 94 Room Air 05/30/17 18:15 96 05/30/17 18:13 76 16 127/91 94 05/30/17 18:03 97 16 151/80 99 05/30/17 17:53 86 15 160/94 99 Room Air 05/30/17 17:43 89 16 127/79 97 Physical Exam CONSTITUTIONAL/GENERAL: This is an adequately nourished patient, in no apparent distress. TUBES/LINES/DRAINS: SKIN: No jaundice, rashes, or lesions. Skin temperature appropriate. Not diaphoretic. HEAD: Atraumatic. Normocephalic. EYES: Pupils equal and round and reactive. Extraocular motions intact. No scleral icterus. No injection or drainage. Fundi not examined. ENT: Hearing grossly normal. Nose without bleeding or purulent drainage. dry oeral mucosae without visible erythema, exudates, masses, or lesions. NECK: Trachea midline. Supple, nontender. CARDIOVASCULAR: Regular rate and rhythm without murmurs, gallops, or rubs. No JVD. Peripheral pulses symmetric. RESPIRATORY/CHEST: Symmetric, unlabored respirations. Clear to auscultation. Breath sounds equal bilaterally. No wheezes, rales, or rhonchi. GASTROINTESTINAL: Abdomen soft, non-tender, nondistended. No hepato-splenomegaly , or palpable masses. No guarding. Bowel sounds present. GENITOURINARY: Without palpable bladder distension. MUSCULOSKELETAL: Extremities without clubbing, cyanosis, or edema. No joint tenderness or effusion noted. No calf tenderness. No mottling or clubbing. LYMPHATICS: No palpable cervical or supraclavicular adenopathy. NEUROLOGICAL: Awake and alert. Motor and sensory grossly within normal limits. Follows simple commands with delay Speech i unintelligible. Moves all extremities. PSYCHIATRIC: calm, pleasant Laboratory Laboratory Tests Test 05/30/17 05/30/17 05/30/17 05/30/17 17:43 18:21 18:25 18:31 White Blood Count 6.8 Red Blood Count 4.11 Hemoglobin 13.2 Bedside Hemoglobin 13.6 Hematocrit 38.5 Bedside Hematocrit 40.0 Mean Corpuscular Volume 93.7 Mean Corpuscular Hemoglobin 32.1 Mean Corpuscular Hemoglobin 34.3 Concent Red Cell Distribution Width 13.6 Platelet Count 212 Mean Platelet Volume 8.0 Neutrophils (%) (Auto) 66.5 Lymphocytes (%) (Auto) 19.9 Monocytes (%) (Auto) 9.3 Eosinophils (%) (Auto) 3.8 Basophils (%) (Auto) 0.5 Neutrophils # (Auto) 4.5 Lymphocytes # (Auto) 1.4 Monocytes # (Auto) 0.6 Eosinophils # (Auto) 0.3 Basophils # (Auto) 0.0 CBC Comment DIFF FINAL Differential Comment Prothrombin Time 21.9 Prothromb Time International 1.9 Ratio Activated Partial 33.4 Thromboplast Time Fibrinogen 439 Bedside Sodium 138 Sodium Level 136 Bedside Potassium 5.2 Potassium Level 5.1 Bedside Chloride 101 Chloride Level 104 Carbon Dioxide Level 25.1 Anion Gap 7 Bedside Blood Urea Nitrogen 38 Blood Urea Nitrogen 28 Creatinine 1.82 Bedside Creatinine 1.7 Estimat Glomerular Filtration 38 Rate Bedside Glucose 110 Random Glucose 104 Calcium Level 9.2 Phosphorus Level 2.9 Magnesium Level 2.4 Total Bilirubin 0.5 Aspartate Amino Transf 45 (AST/SGOT) Alanine Aminotransferase 11 (ALT/SGPT) Alkaline Phosphatase 84 Total Creatine Kinase 141 Troponin I LESS THAN 0.02 Total Protein 7.6 Albumin 3.7 Blood Type A POSITIVE Antibody Screen NEGATIVE Blood Bank Comment Urine Color YELLOW Urine Turbidity HAZY Urine pH 6.5 Urine Specific [place] 1.017 Urine Protein 30 Urine Glucose (UA) NEG Urine Ketones NEG Urine Occult Blood SMALL Urine Nitrite NEG Urine Bilirubin NEG Urine Urobilinogen LESS THAN 2.0 Urine Leukocyte Esterase MOD Urine RBC 86 Urine WBC 18 Urine Amorphous Sediment RARE Urine Bacteria RARE Urine Hyaline Casts 3 Urine Mucus FEW Urine Opiates Screen NEG Urine Barbiturates Screen NEG Urine Amphetamines Screen NEG Urine Benzodiazepines Screen NEG Urine Cocaine Screen NEG Urine Cannabinoids Screen NEG Lactic Acid Level 0.9 Test 05/31/17 05/31/17 02:50 07:32 Nasal Screen MRSA (PCR) MRSA DETECTED White Blood Count 7.0 Red Blood Count 4.22 Hemoglobin 13.2 Hematocrit 40.3 Mean Corpuscular Volume 95.4 Mean Corpuscular Hemoglobin 31.3 Mean Corpuscular Hemoglobin 32.8 Concent Red Cell Distribution Width 13.5 Platelet Count 209 Mean Platelet Volume 7.5 Neutrophils (%) (Auto) 92.8 Lymphocytes (%) (Auto) 6.1 Monocytes (%) (Auto) 0.9 Eosinophils (%) (Auto) 0.1 Basophils (%) (Auto) 0.1 Neutrophils # (Auto) 6.5 Lymphocytes # (Auto) 0.4 Monocytes # (Auto) 0.1 Eosinophils # (Auto) 0.0 Basophils # (Auto) 0.0 CBC Comment DIFF FINAL Differential Comment Sodium Level 136 Potassium Level 4.5 Chloride Level 103 Carbon Dioxide Level 23.9 Anion Gap 9 Blood Urea Nitrogen 30 Creatinine 1.71 Estimat Glomerular Filtration 41 Rate Random Glucose 148 Calcium Level 9.0 Date/Time Procedure Status Source Growth 05/30/17 18:30 Aerobic Blood Culture - Preliminary Resulted Blood Peripheral NO GROWTH IN 1 DAY 05/30/17 18:30 Anaerobic Blood Culture - Preliminary Resulted Blood Peripheral NO GROWTH IN 1 DAY Result Diagram: 05/31/17 0732 05/31/17 0732 Imaging Last Impressions Carotid Artery Ultrasound 05/31/17 0000 Signed Impressions: Service Date/Time: Wednesday, May 31, 2017 12:24 - CONCLUSION: No hemodynamically significant stenosis in either carotid artery. Amandeep Stern MD Head CT 05/30/17 0000 Signed Impressions: Service Date/Time: Tuesday, May 30, 2017 17:53 - CONCLUSION: No acute disease. Glenn Bernard MD Chest X-Ray 05/30/17 0000 Signed Impressions: Service Date/Time: Tuesday, May 30, 2017 18:01 - CONCLUSION: No acute disease. Glenn Bernard MD Assessment and Plan Assessment and Plan Pt admitted with mental status change No e/o sepsis (nl temp, lactic acid , vitals, WBC and bl clx) Recently diagnoosed with UT, on Ertapenm per records - cont Ertapenam - chk urine clx Criselda Singh MD May 31, 2017 13:42
--- NOTE | 2017-05-31 14:50 | HHI.PR ---
Subjective Remarks Follow-up for altered mental status versus TIA Patient's caregiver his brothers at the bedside. At baseline patient does not talk a lot, but does follow commands. Patient disabled from to me but other than that he would not say much. His brother who is an ICU nurse stated that patient is doing a lot better and he is able to say his name and his 's name. Patient is following commands. His nurse is at the bedside and asking for Ativan due to agitation when trying to get MRI. She stated the 1 mg Ativan did not work. Patient's brother stated that patient is post to be on Invanz for 2 more days for UTI. He stated that patient is resistant to all other antibiotics. Otherwise no other complaints. Objective Vitals Vital Signs Date Time Temp Pulse Resp B/P Pulse Ox O2 Delivery O2 Flow Rate FiO2 05/31/17 07:34 99 Nasal Cannula 2.00 05/31/17 04:00 97.6 91 16 98/55 98 05/31/17 00:30 98.3 109 24 125/76 97 05/30/17 23:15 99 Nasal Cannula 3.00 05/30/17 22:45 99.1 82 20 157/85 100 05/30/17 21:00 80 23 121/70 100 Nasal Cannula 2 05/30/17 19:00 82 22 100 Nasal Cannula 2 05/30/17 19:00 82 21 117/74 100 Nasal Cannula 2 05/30/17 18:25 77 18 122/70 94 Room Air 05/30/17 18:15 96 05/30/17 18:13 76 16 127/91 94 05/30/17 18:03 97 16 151/80 99 05/30/17 17:53 86 15 160/94 99 Room Air 05/30/17 17:43 89 16 127/79 97 I/O 05/30/17 05/30/17 05/30/17 05/31/17 05/31/17 05/31/17 07:00 15:00 23:00 07:00 15:00 23:00 Intake Total 933 ml Output Total 250 ml Balance 683 ml Intake Oral 0 ml IV Total 933 ml Output Urine Total 250 ml # Bowel Movements 0 Result Diagram: 05/31/1732 05/31/1732 Objective Remarks GENERAL: in NAD SKIN: Warm and dry. HEAD: Normocephalic. EYES: No scleral icterus. No injection or drainage. NECK: Supple, trachea midline. No JVD or lymphadenopathy. CARDIOVASCULAR: Regular rate and rhythm without murmurs, gallops, or rubs. RESPIRATORY: Breath sounds equal bilaterally. No accessory muscle use. GASTROINTESTINAL: Abdomen soft, non-tender, nondistended. NEURO: Patient does not speak a lot and this is baseline. He follows commands. Motor sensation grossly intact. Facial droop resolved. Medications and IVs Current Medications Sodium Chloride (NS 1000 ml Inj) 1,000 ml @ 70 mls/hr [id number] ONCE IV Last administered on 05/30/17 18:53; Start 05/30/17 at 17:43; Stop 05/31/17 at 00:00 ; Status DC Lorazepam (Ativan Inj) 0.5 mg ONCE ONCE IV PUSH Last administered on 18:28; Start 05/30/17 at 17:45; Stop 05/30/17 at 17:46; Status DC Lorazepam (Ativan Inj) 2 mg STK-MED ONCE .ROUTE ; Start 05/30/17 at 17:45; Stop 05/30/17 at 17:46; Status DC Lorazepam 0.5 mg 0.5 mg ONCE ONCE IV PUSH Last administered on 05/30/17 18:27 ; Start 05/30/17 at 18:00; Stop 05/30/17 at 18:01; Status DC Ceftriaxone Sodium/Sodium Chloride (Rocephin Inj/NS Inj) 100 ml @ 200 mls/hr ONCE ONCE IV Last administered on 05/30/17 20:04; Start 05/30/17 at 19:30; Stop 05/30/17 at 19:59; Status DC Lorazepam (Ativan Inj) 1 mg ONCE ONCE IV PUSH Last administered on 05/30/17 21:19; Start 05/30/17 at 21:15; Stop 05/30/17 at 21:23; Status DC Sodium Chloride (NS Flush) 2 ml UNSCH PRN IVF FLUSH AFTER USING IV ACCESS; Start 05/30/17 at 21:15; Stop 05/30/17 at 23:29; Status DC Albuterol/ Ipratropium (Duoneb Neb) 1 ampule Q15M INH Last administered on 05/30 23:23; Start 05/30/17 at 21:15; Stop 05/30/17 at 21:46; Status DC Sodium Chloride (NS Flush) 2 ml UNSCH PRN IV FLUSH FLUSH AFTER USING IV ACCESS ; Start 05/30/17 at 21:30 Sodium Chloride (NS Flush) 2 ml BID IV FLUSH ; Start 05/31/17 at 09:00 Naloxone HCl (Narcan Inj) 0.4 mg UNSCH PRN IV SEE LABEL COMMENTS; Start at 21:30 Albuterol/ Ipratropium (Duoneb Neb) 1 ampule Q6HR NEB NEB Last administered on 05/31/17 07:32; Start 05/30/17 at 22:00 Albuterol/ Ipratropium 1 ampule 1 ampule Q2HR NEB PRN NEB wheezing Last administered on 05/31/17 03:23; Start 05/30/17 at 22:00 Ciprofloxacin/ Dextrose (Cipro 400 Mg Premix) 200 ml @ 200 mls/hr Q12H IV Last administered on 05/31/17 11:29; Start 05/30/17 at 23:00; Stop 05/31/17 at 13:11; Status DC Flumazenil (Romazicon Inj) 0.2 mg ONCE ONCE IV PUSH ; Start 05/30/17 at 23:30; Stop 05/30/17 at 23:31; Status DC Methylprednisolone Sodium Succinate (SoluMEDROL INJ) 125 mg ONCE ONCE IV PUSH Last administered on 05/30/17 23:42; Start 05/30/17 at 23:45; Stop 05/30/17 at 23:46; Status DC Methylprednisolone Sodium Succinate (SoluMEDROL INJ) 40 mg Q6HR IV PUSH Last administered on 05/31/17 11:30; Start 05/31/17 at 06:00 Pantoprazole Sodium 40 mg 40 mg Q12H IV PUSH Last administered on 05/31/17 01: 29; Start 05/31/17 at 01:00 Sodium Chloride (NS 1000 ml Inj) 1,000 ml @ 100 mls/hr Q10H IV Last administered on 05/31/17 02:06; Start 05/31/17 at 01:45 Lorazepam (Ativan Inj) 2 mg ONCE ONCE IV PUSH ; Start 05/31/17 at 13:00; Stop 05/31/17 at 13:54; Status DC Miscellaneous Medication (ASP Crit: Path resist to other, cult proven) 1 UNSCH X1 PRN .XX PHARMACY DOCUMENTATION; Start 05/31/17 at 13:15; Stop 06/01/17 at 13 :14 Miscellaneous Medication 1 1 UNSCH X1 PRN XX PHARMACY DOCUMENTATION; Start at 13:15; Stop 06/01/17 at 13:14 Ertapenem/Sodium Chloride (INVanz INJ/NS Inj) 100 ml @ 200 mls/hr Q24H IV ; Start 05/31/17 at 15:00 A/P Problem List: (1) Encephalopathy ICD Code: G93.40 Status: Acute (2) Urinary tract infection ICD Code: N39.0 Status: Acute (3) DUTCH (acute kidney injury) ICD Code: N17.9 Status: Acute (4) COPD exacerbation ICD Code: J44.1 Status: Acute Assessment and Plan 66 y/o male with a history of anoxic brain injury at , cerebral palsy, Parkinson, copd, HTN and HLD was brought to the ED as a stroke alert from a nursing facility. Lethargy/facial droop -Concerning for TIA. Stroke alert called patient was not a candidate for TPA. Neurologists is following. Symptoms seems to be improving. -Head CT reviewed and unremarkable -Pending MRI/ MRA of brain ordered, unable to complete due to agitation. Will give Ativan to help with agitation. -PT/OT/ST consulted. -Will allow permissive hypertension. Stroke protocol is being followed. ESBL UTI, suspect e coli, no leukocytosis -Patient was put on Cipro but is resistant to all medication except Invanz. -Will discontinue Cipro and start patient on Invanz. Per caregiver he has 2 more days of Invanz. ID was already consulted. -Pending repeat urine cultures. COPD exacerbation improved. -Duonebs scheduled and PRN -Will change to oral steroids. -O2 as needed Acute Kidney Injury, Creatine 1.8, baseline 1.5, likely dehydration -1L bolus given in ED, Cont IVF -Continues to improve. Chronic medical conditions -Will restart oral medication. DVT prophylaxis: DVTs GI prophylaxis: Protonix Lanette Gonzalez MD May 31, 2017 14:50
[2017-05-31] MEDS ORDERED: ARTIFICIAL TEARS OPTH SOLN 15 ML BTL EACH EYE PRN (15:00)
--- NOTE | 2017-05-31 15:46 | MG ---
cc: HEIDI FRAUSTO MD Lab No: Date: 05/31/2017 Age: Sex: M Race: DATE OF [address] Funk. MEDICAL HISTORY History of hypoxic brain injury at with cerebral palsy and developmental delay, tremors, pericarditis, Parkinson's disease, falls, tobacco abuse and incontinence. MEDICATIONS 1. Solu-Medrol. 2. Protonix. 3. Dextrose. 4. Albuterol. DESCRIPTION The background activity is 5-6 Hz theta, bilateral and symmetrical. The EEG recording was contaminated with excessive muscle artifact. There is intermittent breach rhythm at F7. Hyperventilation was not performed. Photic stimulation did not elicit a driving response. There were no epileptiform discharges or electrographic seizures noted during the recording. INTERPRETATION This is an awake and abnormal EEG recording. There is mild background slowing that may indicate a mild to moderate encephalopathy. The absence of electrographic seizures or epileptiform discharges does not rule out the diagnosis of epilepsy. Clinical correlation is recommended. Heidi Frausto MD RGO/TLL /3:27 PM /3:35 PM MTDJuventino
[2017-05-31] MEDS ORDERED: WARFARIN SOD 5 MG TAB PO SCH (16:00)
[2017-05-31] MEDS ORDERED: WARFARIN SOD 2 MG TAB PO SCH (16:00)
--- NOTE | 2017-05-31 17:45 | RADRPT ---
EXAM DATE/TIME: 05/31/2017 16:49 [facility] COMPARISON: CT BRAIN W/O CONTRAST, May 30, 2017, 17:53. INDICATIONS : CVA. MEDICAL HISTORY : Parkinson's. SURGICAL HISTORY : Left hand. ENCOUNTER: Initial ACUITY: 1 day PAIN SCORE: 0/10 LOCATION: Head. Please note a normal MRA of the brain does not entirely exclude the possibility of a small aneurysm, nor the possibility of distal intracranial vessel disease. TECHNIQUE: 3D time of flight MRA was performed. Source images, multiplanar STS MIP, and 3D volume MIP reconstru ctions were reviewed. FINDINGS: There is significant motion on the exam. There is excellent visualization of the major intracranial arteries out to the second-order branch ve ssels. There is no evidence for aneurysm, vessel truncation or stenosis, and no evidence for vascula r malformation. The left vertebral artery is dominant. The left anterior cerebral artery is not identified. The left posterior communicating artery is patent contributing significant flow to the left posterior cerebral circulation CONCLUSION: Motion limited exam without any obvious aneurysm. 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 Karl Durbin MD on May 31, 2017 at 17:41 Board Certified Radiologist. This report was verified electronically.
--- NOTE | 2017-05-31 17:48 | RADRPT ---
EXAM DATE/TIME: 05/31/2017 16:49 [facility] COMPARISON: No previous studies available for comparison. INDICATIONS : CVA. MEDICAL HISTORY : Parkinson's. SURGICAL HISTORY : Left hand. ENCOUNTER: Initial ACUITY: 1 day PAIN SCORE: 0/10 LOCATION: Head. TECHNIQUE: Multiplanar, multisequence MRI of the brain was performed without contrast. FINDINGS: CEREBRUM: The ventricles are normal for age. No evidence of midline shift, mass lesion, hemorrhage or acute in farction. No extraaxial fluid collections are seen. The pituitary gland and suprasellar cistern are normal in configuration. WHITE MATTER: No significant signal abnormalities are seen in the white matter. POSTERIOR FOSSA: The cerebellum and brainstem are intact except for a small 1 cm lacunar infarct right cerebellar luz marina sphere. The 4th ventricle is midline. The cerebellopontine angle is unremarkable. The cerebellar to nsils are normal in position. DIFFUSION IMAGING: No focal areas of restricted diffusion are seen. No evidence of acute infarction. EXTRACRANIAL: The visualized portions of the orbits and paranasal sinuses are unremarkable. CONCLUSION: Normal examination except for right cerebellar hemisphere. Karl Durbin MD on May 31, 2017 at 17:45 Board Certified Radiologist. This report was verified electronically.
[2017-05-31] MEDS: ERTAPENEM INJ 1,000 MG in SODIUM CHLORIDE 0.9% INJ 100 ML IV SCH (18:21)
[2017-05-31] MEDS ORDERED: ATORVASTATIN 20 MG TAB PO SCH (21:00)
[2017-05-31] MEDS ORDERED: TOLTERODINE TARTRATE 4 MG CAP LA PO SCH (21:00)
[2017-05-31] MEDS: CARBIDOPA/LEVODOPA 25 MG/100 MG TAB PO SCH (21:00)
[2017-05-31] MEDS ORDERED: MIRTAZAPINE 15 MG TAB PO SCH (21:00)
[2017-05-31] MEDS: AMANTADINE HCL 100 MG CAP PO SCH (21:00)
[2017-05-31] MEDS: PRAMIPEXOLE DIHYDROCHLORIDE 1 MG TAB PO SCH (21:00)
[2017-05-31] MEDS ORDERED: CETIRIZINE HCL 10 MG TAB PO SCH (21:00)
[2017-06-01] VITALS: BP 110/86; PULSE 106; RESP 25; TEMP 99; O2SAT 100
[2017-06-01] MEDS: PANTOPRAZOLE SODIUM 40 MG VIAL IV PUSH SCH ×2 (00:43→13:24)
[2017-06-01] MEDS: SODIUM CHLOR 0.9% 1000 ML INJ 1,000 ML IV SCH ×2 (00:48→11:09)
[2017-06-01] MEDS: RESP: ALBUTEROL 2.5 MG/IPRATROPIUM 0.5 MG NEB (SCH) NEB ×3 (03:45→15:47)
[2017-06-01 04:00] VITALS: BP 124/66; PULSE 111; RESP 26; TEMP 98.9; O2SAT 100
[2017-06-01 04:51] LABS: INTERNATIONAL NORMALIZED RATIO 1.7 RATIO; PROTHROMBIN TIME - PATIENT 19.7 SEC (9.8-11.6)
[2017-06-01 05:12] LABS: BICARBONATE 22.9 MEQ/L (21.0-32.0); POTASSIUM 3.9 MEQ/L (3.5-5.1)
--- NOTE | 2017-06-01 07:55 | HHI.PR ---
Review/Management Daily Summary 06/01 no seizure or neuro new events alert and minimally conversant resolved met encephalopathy staff reports his brother felt he is back to baseline ok neuro [facility] to d/c and follow with his ongoing neurologist i saw him years past in the office Subjective Subjective Comments No acute events reported Active Medications Current Medications Medications (Trade) Dose Ordered Sig/Joann Route Start Time Stop Time Status Last Admin (NS Flush) 2 ml UNSCH PRN IV FLUSH 05/30/17 21:30 (NS Flush) 2 ml BID IV FLUSH 05/31/17 09:00 (Narcan Inj) 0.4 mg UNSCH PRN IV 05/30/17 21:30 Pantoprazole Sodium 40 mg 40 mg Q12H IV PUSH 05/31/17 01:00 06/01/17 00:43 Sodium Chloride 1,000 ml @ 100 mls/hr Q10H IV 05/31/17 01:45 06/01/17 00:48 (INVanz INJ/NS Inj) 100 ml @ 200 mls/hr Q24H IV 05/31/17 15:00 05/31/17 18:21 (Deltasone) 50 mg DAILY PO 06/01/17 09:00 (Symmetrel) 100 mg BID PO 05/31/17 21:00 (Lipitor) 20 mg HS PO 05/31/17 21:00 (Sinemet 25-100 Mg) 2 tab QID PO 05/31/17 18:00 (ZyrTEC) 10 mg HS PO 05/31/17 21:00 (Vitamin D3) 5,000 units DAILY PO 06/01/17 09:00 (Remeron) 15 mg HS PO 05/31/17 21:00 (Tears Naturale Opth Soln) 1 drop Q8HR PRN EACH EYE 05/31/17 15:00 (Mirapex) 1.5 mg QID PO 05/31/17 18:00 (Detrol La) 4 mg HS PO 05/31/17 21:00 Multivitamins/ Minerals Therapeutic 1 tab 1 tab DAILY PO 05/31/17 16:15 (Coumadin Consult Pharmacy) 0 ml @ 0 mls/hr UNSCH OTHER 05/31/17 15:00 (Coumadin) 5 mg DAILY@16 PO 05/31/17 16:00 (Coumadin) 2 mg DAILY@16 PO 05/31/17 16:00 Allergies Allergies Coded Allergies Haldol (Verified Allergy, Unknown, 05/30/17) *MDRO Multi-Drug Resistant Organism (Verified Adverse Reaction, Unknown, ) Exam I&O / VS 05/31/17 05/31/17 06/01/17 15:00 23:00 07:00 Intake Total 908 ml 493 ml 441 ml Output Total 250 ml 350 ml 375 ml Balance 658 ml 143 ml 66 ml Intake Oral 0 ml 0 ml IV Total 908 ml 493 ml 441 ml Output Urine Total 250 ml 350 ml 375 ml # Bowel Movements 0 0 2 Vital Signs Date Time Temp Pulse Resp B/P Pulse Ox O2 Delivery O2 Flow Rate FiO2 06/01/17 04:00 98.9 111 26 124/66 100 06/01/17 00:00 99.0 106 25 110/86 100 05/31/17 20:05 99 Nasal Cannula 2.00 05/31/17 20:00 98.3 109 27 109/68 99 05/31/17 16:00 98.1 100 28 102/59 97 05/31/17 12:00 98.2 106 31 111/70 99 05/31/17 08:00 98.0 106 28 102/55 83 Objective Radiology Results Last 48 hours Impressions Head Magnetic Resonance Angiography 05/31/171808 Signed Impressions: Service Date/Time: Wednesday, May 31, 2017 16:49 - CONCLUSION: Motion limited exam without any obvious aneurysm. 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 Karl Durbin MD Brain MRI 05/31/171808 Signed Impressions: Service Date/Time: Wednesday, May 31, 2017 16:49 - CONCLUSION: Normal examination except for right cerebellar hemisphere. Karl Durbin MD Carotid Artery Ultrasound 05/31/17 0000 Signed Impressions: Service Date/Time: Wednesday, May 31, 2017 12:24 - CONCLUSION: No hemodynamically significant stenosis in either carotid artery. Amandeep Stern MD Micro and Labs Laboratory Tests Test 06/01/17 03:58 Prothrombin Time 19.7 Prothromb Time International 1.7 Ratio Sodium Level 140 Potassium Level 3.9 Chloride Level 107 Carbon Dioxide Level 22.9 Anion Gap 10 Blood Urea Nitrogen 29 Creatinine 1.41 Estimat Glomerular Filtration 51 Rate Random Glucose 107 Calcium Level 8.7 Date/Time Procedure Status Source Growth 05/30/17 18:30 Aerobic Blood Culture - Preliminary Resulted Blood Peripheral NO GROWTH IN 1 DAY 05/30/17 18:30 Anaerobic Blood Culture - Preliminary Resulted Blood Peripheral NO GROWTH IN 1 DAY Oswaldo Funk MD Jun 01, 2017 07:55
[2017-06-01 08:00] VITALS: BP 149/85; PULSE 100; RESP 20; TEMP 98.5; O2SAT 97
[2017-06-01] MEDS ORDERED: predniSONE 50 MG TAB PO SCH (09:00)
[2017-06-01] MEDS ORDERED: CHOLECALCIFEROL (VIT D3) 5000 UNIT CAP PO SCH (09:00)
[2017-06-01] MEDS: SODIUM CHLORIDE 0.9% FLUSH 10 ML FLUSH IV FLUSH SCH (09:00)
[2017-06-01] MEDS: MULTIVITAMINS/MINERALS THERAPEUTIC TAB PO SCH ×2 (09:00→09:07)
[2017-06-01] MEDS: CARBIDOPA/LEVODOPA 25 MG/100 MG TAB PO SCH ×2 (09:07→13:24)
[2017-06-01] MEDS: AMANTADINE HCL 100 MG CAP PO SCH (09:07)
[2017-06-01] MEDS: PRAMIPEXOLE DIHYDROCHLORIDE 1 MG TAB PO SCH ×2 (09:08→13:24)
[2017-06-01 09:37] VITALS: O2SAT 99
[2017-06-01] MEDS ORDERED: CHLORHEXIDINE GLUCONATE 2 % 1 PACK (2 CLOTHS)(extra cloths) TOPICAL PRN (10:45)
[2017-06-01] MEDS ORDERED: PRED50 PO (10:56)
[2017-06-01] MEDS ORDERED: BACTOIN NASAL (10:56)
--- NOTE | 2017-06-01 10:58 | HHI.DCPOC ---
Discharge Care Plan Diagnosis: (1) Dehydration (2) DUTCH (acute kidney injury) (3) COPD exacerbation (4) Altered mental status Goals to Promote Your Health * To prevent worsening of your condition and complications * To maintain your health at the optimal level Directions to Meet Your Goals Take your medications as prescribed Follow your dietary instruction Follow activity as directed Keep your appointments as scheduled Take your immunizations and boosters as scheduled If your symptoms worsen call your PCP, if no PCP go to Urgent Care Center or Emergency Room Smoking is Dangerous to Your Health. Avoid second hand smoke Call the 24-hour hour crisis hotline for domestic abuse at Lanette Gonzalez MD Jun 01, 2017 10:57
[2017-06-01 12:00] VITALS: BP 171/80; PULSE 98; RESP 19; TEMP 98; O2SAT 100
[2017-06-01] MEDS ORDERED: LISINOPRIL 5 MG TAB PO SCH (12:30)
--- NOTE | 2017-06-01 14:40 | HHI.DS ---
Discharge Summary Admission Date May 30, 2017 at 21:23 Discharge Date: Jun 01, 2017 Admitting Diagnosis AMS, UTI, R/O CVA (1) Encephalopathy ICD Code: G93.40 Diagnosis: Principal (2) DUTCH (acute kidney injury) ICD Code: N17.9 Diagnosis: Principal (3) COPD exacerbation ICD Code: J44.1 Diagnosis: Principal (4) Dehydration ICD Code: E86.0 Diagnosis: Principal (5) Urinary tract infection ICD Code: N39.0 Diagnosis: Secondary Procedures See hospital course. Brief History - From Admission Written by XIOMARA Santos acting as scribe for [Rik] on 05/30/17 at 23: 37. 66 y/o male with a history of anoxic brain injury at , cerebral palsy, Parkinson, copd, HTN and HLD was brought to the ED as a stroke alert from a nursing facility. Per ED report patient was noted to have a right facial droop and unable to follow commands. Patient is not verbal so history and ROS are limited. No family is at bedside upon examination. The patient was examined at beside, non verbal and not following commands. It is not clear what the patients baseline is. He does have tremors due to Parkinson disease. He is able to slightly arouse to sternal rub, he was given Ativan prior to MRI, and according to ED physician patient was non verbal and agitated at this time. He was having wheezing and tachypnea on examination, additional DuoNeb was given along with Solumedral 125mg IV. Patient appeared to be having a panic attack. Once the room was cleared of people, the patient began to relax. Respirations began to normalize. He will be transferred to the Unit for closer monitoring. According to the EMR patient did have a UTI on 05/21/17 and was being treated with Invanz at the detention. Last hospital visit was 2014 for PNA, records reviewed. Dr. Cavanaugh did see patient in ED and felt he was not a TPA candidate due to history and mental status. He feels the AMS is due to UTI. CBC/BMP: 05/31/17 0732 06/01/17 0358 Significant Findings Laboratory Tests Test 05/30/17 05/30/17 05/31/17 06/01/17 17:43 18:25 07:32 03:58 Red Blood Count 4.11 MIL/MM3 4.22 MIL/MM3 (4.50-5.90) (4.50-5.90) Hematocrit 38.5 % (39.0-51.0) Monocytes (%) (Auto) 9.3 % (0.0-8.0) Prothrombin Time 21.9 SEC 19.7 SEC (9.8-11.6) (9.8-11.6) Activated Partial 33.4 SEC Thromboplast Time (24.3-30.1) Fibrinogen 439 mg/dL (227-377) Bedside Potassium 5.2 MMOL/L (3.5-4.9) Bedside Blood Urea Nitrogen 38 MG/DL (8-26) Blood Urea Nitrogen 28 MG/DL (7-18) 30 MG/DL (7-18) 29 MG/DL (7-18) Creatinine 1.82 MG/DL 1.71 MG/DL 1.41 MG/DL (0.60-1.30) (0.60-1.30) (0.60-1.30) Bedside Creatinine 1.7 MG/DL (0.8-1.3) Estimat Glomerular Filtration 38 ML/MIN (>89) 41 ML/MIN (>89) 51 ML/MIN (>89) Rate Bedside Glucose 110 MG/DL (60-95) Aspartate Amino Transf 45 U/L (15-37) (AST/SGOT) Alanine Aminotransferase 11 U/L (12-78) (ALT/SGPT) Troponin I LESS THAN 0.02 NG/ML (0.02-0.05) Urine Turbidity HAZY (CLEAR) Urine Protein 30 mg/dL (NEG-TRACE) Urine Occult Blood SMALL (NEG) Urine Leukocyte Esterase MOD (NEG) Urine RBC 86 /hpf (0-3) Urine WBC 18 /hpf (0-5) Urine Bacteria RARE /hpf (NONE) Urine Mucus FEW /lpf (OCC) Neutrophils (%) (Auto) 92.8 % (16.0-70.0) Lymphocytes (%) (Auto) 6.1 % (9.0-44.0) Lymphocytes # (Auto) 0.4 TH/MM3 (1.0-4.8) Random Glucose 148 MG/DL 107 MG/DL (74-106) (74-106) Imaging Last Impressions Head Magnetic Resonance Angiography 05/31/171808 Signed Impressions: Service Date/Time: Wednesday, May 31, 2017 16:49 - CONCLUSION: Motion limited exam without any obvious aneurysm. 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 Karl Durbin MD Brain MRI 05/31/171808 Signed Impressions: Service Date/Time: Wednesday, May 31, 2017 16:49 - CONCLUSION: Normal examination except for right cerebellar hemisphere. Karl Durbin MD Carotid Artery Ultrasound 05/31/17 0000 Signed Impressions: Service Date/Time: Wednesday, May 31, 2017 12:24 - CONCLUSION: No hemodynamically significant stenosis in either carotid artery. Amandeep Stern MD Head CT 05/30/17 0000 Signed Impressions: Service Date/Time: Tuesday, May 30, 2017 17:53 - CONCLUSION: No acute disease. Glenn Bernard MD Chest X-Ray 05/30/17 0000 Signed Impressions: Service Date/Time: Tuesday, May 30, 2017 18:01 - CONCLUSION: No acute disease. Glenn Bernard MD PE at Discharge GENERAL: in NAD SKIN: Warm and dry. HEAD: Normocephalic. EYES: No scleral icterus. No injection or drainage. NECK: Supple, trachea midline. No JVD or lymphadenopathy. CARDIOVASCULAR: Regular rate and rhythm without murmurs, gallops, or rubs. RESPIRATORY: Breath sounds equal bilaterally. No accessory muscle use. GASTROINTESTINAL: Abdomen soft, non-tender, nondistended. NEURO: Patient does not speak a lot and this is baseline. He follows commands. Motor sensation grossly intact. Hospital Course 66 y/o male with a history of anoxic brain injury at , cerebral palsy, Parkinson, copd, HTN and HLD was brought to the ED as a stroke alert from a nursing facility. Metabolic encephalopathy/facial droop -Concerning for TIA. Stroke alert called patient was not a candidate for TPA. Neurologists was consulted and symptoms seem to improve quickly. -Head CT reviewed and unremarkable -Pending MRI/ MRA of brain ordered, unable to complete due to agitation. Will give Ativan to help with agitation. -PT/OT/ST consulted. -Will allow permissive hypertension. Stroke protocol is being followed. ESBL UTI, suspect e coli, no leukocytosis -Patient was put on Cipro but is resistant to all medication except Invanz. -Will discontinue Cipro and start patient on Invanz. Per caregiver he has 2 more days of Invanz. ID was already consulted. -Pending repeat urine cultures. COPD exacerbation improved. -Duonebs scheduled and PRN -Will change to oral steroids. -O2 as needed Acute Kidney Injury, Creatine 1.8, baseline 1.5, likely dehydration -1L bolus given in ED, Cont IVF -Continues to improve. Chronic medical conditions -Will restart oral medication. DVT prophylaxis: DVTs GI prophylaxis: Protonix Pt Condition on Discharge: Good Discharge Disposition: Discharge to SNF Discharge Instructions DIET: Follow Instructions for: Heart Healthy Diet Speech Therapy-Diet Recommends: Honey Thickened Liquids Additional Diet Instructions: COUMADIN DIET Activities you can perform: Regular-No Restrictions Lanette Gonzalez MD Jun 01, 2017 14:40
[2017-06-01] MEDS: ERTAPENEM INJ 1,000 MG in SODIUM CHLORIDE 0.9% INJ 100 ML IV SCH (15:00)
[2017-06-01 16:00] VITALS: BP 162/75; PULSE 105; RESP 20; TEMP 98; O2SAT 99
[2017-06-01] MEDS ORDERED: MUPIROCIN 2% OINT 1 APPLIC/GM SYR NASAL SCH (21:00)
[2017-06-02] MEDS ORDERED: CHLORHEXIDINE GLUCONATE 2 % 1 PACK (2 CLOTHS)(taper/protocol) TOPICAL SCH (04:00)
== END 2017-06-01 19:11 | DRG 682 ==
LOC: NEPC 17:38 → NEDA 21:23 → N06A 22:47 → N03B 05-31 00:19
PROVIDERS: ADMIT Family Medicine; ATTEND Family Medicine
DX: N17.9 Acute kidney failure, unspecified (principal); G93.49 Other encephalopathy; G93.1 Anoxic brain damage, not elsewhere classified; N39.0 Urinary tract infection, site not specified; J44.1 Chronic obstructive pulmonary disease with (acute) exacerbation; G45.9 Transient cerebral ischemic attack, unspecified; R29.810 Facial weakness; G20 Parkinson's disease; G80.9 Cerebral palsy, unspecified; E78.5 Hyperlipidemia, unspecified; I10 Essential (primary) hypertension; E86.0 Dehydration; F41.0 Panic disorder [episodic paroxysmal anxiety]; B96.20 Unspecified Escherichia coli [E. coli] as the cause of diseases classified elsewhere; Z16.12 Extended spectrum beta lactamase (ESBL) resistance; Z79.01 Long term (current) use of anticoagulants; Z87.891 Personal history of nicotine dependence
CPT/HCPCS: 70450; 70544; 70551; 71010; 80048; 80053; 80307; 81001; 82435; 82550; 82565; 82947; 83605; 83735; 84100; 84132; 84295; 84484; 84520; 85025; 85384; 85610; 85730; 86850; 86900; 86901; 87040; 87641; 93005; 93880; 94640; 94664; 95819; 96365; 96375; 96376; C9113; J0696; J0744; J1335; J2060; J2920; J2930; J7030; J7512

== ENCOUNTER 2018-01-29 08:56 | Day surgery (SDC) | payer OTHER, MEDICAID ==
[2018-01-29] VITALS (8 sets, daily range): BP systolic 95–171; BP diastolic 74–94; PULSE 96–102; RESP 16; TEMP 98.3; O2SAT 94–97
[~2018-01-29 08:56] MED LIST changes: +ALBU0.08 NEB; -ALBU2.5I INH; +ATOR20TA15 PO; +BACTOIN NASAL; -CARB25TA PO; -CEFU1TAB43 PO; +CETI-1 PO; -CETI10 PO; +CHOL5000 PO; +COUM2TAB PO; +COUM5TAB PO; +ERTA1P IV; +IPRASOL INH; +LISI-519 PO; +MAPA500T PO; -MIRTA15 PO; -MUCI600T PO; -MULT-65 PO; +MULT-71 PO; +NORM0.9I4 IV FLUSH; +NORMINJ11 IV FLUSH; +PANT20TA2 PO; -POLY1.4S EACH EYE; +POLY99.0 EACH EYE; +PRED50 PO; -PROT40TA PO; +REME15TA PO; -SENN8.6T15 PO; +SENO8.6T5 PO; +SINE25TA PO; +TAMS0.4C4 PO; -TYLE500T PO; -VITA400C28 PO
[2018-01-29] MEDS ORDERED: IOHEXOL 350 MG/ML 50 ML BTL (for Cath Lab) G-TUBE ONE (08:57)
[2018-01-29] MEDS ORDERED: APIX2.5T PO (09:15)
[2018-01-29] MEDS ORDERED: ceFAZolin 2 GM PREMIX 50 ML - gastrostomy and jejunostomy initial insertion IV SCH (09:30)
[2018-01-29] MEDS ORDERED: SODIUM CHLORIDE 0.9% 1000 ML IV SCH (09:30)
[2018-01-29 09:45] LABS: INTERNATIONAL NORMALIZED RATIO 1.1 RATIO; PROTHROMBIN TIME - PATIENT 11.3 SEC (9.8-11.6)
[2018-01-29] MEDS ORDERED: MIRTA15 PO (09:46)
[2018-01-29] MEDS ORDERED: Robitussin DM (09:46)
[2018-01-29] MEDS ORDERED: DEXT1LIQ PO (09:46)
[2018-01-29] MEDS ORDERED: CHOLTAB8 PO (09:46)
[2018-01-29] MEDS ORDERED: MIRA1.5T3 PO (09:46)
[2018-01-29] MEDS ORDERED: MIDAZOLAM HCL 2 MG/2 ML VIAL ONE ×2 (10:11→10:12)
[2018-01-29] MEDS ORDERED: GLUCAGON 1 MG/ML VIAL ONE (10:45)
--- NOTE | 2018-01-29 11:06 | PD.RAD ---
Post Procedure Progress Note Pre Procedure Diagnosis: (1) Dehydration (2) Moderate protein-calorie malnutrition (3) Parkinsons disease Post Procedure Diagnosis: (1) Dehydration (2) Parkinsons disease (3) Moderate protein-calorie malnutrition Procedure Date: Jan 29, 2018 Supervising Radiologist: Ander Chase Estimated blood loss: 2cc Anesthesia: Local, Conscious Sedation Plan of Activity Patient to Unit: ROPU Patient Condition: Poor Additional Comments: G tube placed without difficulty Catheter position verified to be in the stomach. Full dictated report to follow See PACS Report for procedural detail/treatment Ander Chase MD Jan 29, 2018 11:06
--- NOTE | 2018-01-29 12:05 | RADRPT ---
EXAM DATE/TIME: 01/29/2018 10:27 [place] COMPARISON: No previous studies available for comparison. INDICATIONS : Patient with a history of cerebral palsy. MEDICAL HISTORY : anoxic brain injury cerebral palsy parkinson's COPD HLD SURGICAL HISTORY : Tonsillectomy Left hand pin placement ENCOUNTER: Initial ACUITY: > 1 year PAIN SCORE: Nonresponsive. FLUORO TIME: 6.8 minutes IMAGE SERIES: 2 SEDATION TIME: 30 minutes CONTRAST: 20 cc Omnipaque (iohexol) 350 MEDICATION(S): 1.) 1.5 mg midazolam (Versed) IV 2.) 75 mg Fentanyl (Sublimaze) IV DEVICE(S): 1.) 18 Fr gastrostomy tube PROCEDURE : 1. Limited abdominal ultrasound. 2. Fluoroscopically guided gastrostomy tube placement. 3. Conscious sedation with continuous EKG and oximetry monitoring. The risks, benefits and alternatives to the procedure were explained to the patient's healthcare surr ogate. Verbal and written consent was obtained via telephone. The patient is nonresponsive. The site was prepped in sterile fashion. Full sterile technique was used, including cap, mask, sterile glove s and gown and a large sterile sheet. Hand hygiene and 2% chlorhexidine and/or betadine/alcohol prep was utilized per protocol for cutaneous antisepsis. The skin and subcutaneous tissues were infiltra german with local anesthetic solution. Sterile gel and sterile probe cover were utilized for ultrasound guidance. Ultrasound was used to jing the position of the liver. The stomach was insufflated with room air. Th ree percutaneous fasteners were placed to secure the anterior gastric wall. A small incision was made between the fasteners. The stomach was accessed with an 18 gauge needle. A n 0.035 wire was advanced into the small bowel. The tract was dilated. The gastrostomy tube was int roduced through a peel-away sheath. The position was confirmed with an injection of contrast. Conscious sedation was performed with the prescribed dosages and duration as above in the presence of an independent trained radiology nurse to assist in the monitoring of the patient. EKG and oximetry remained stable throughout the procedure. The patient tolerated the procedure well and there were n o complications. The patient was sent to post anesthesia recovery in stable condition. CONCLUSION: Uncomplicated gastrostomy tube placement as above. Ander Chase MD on January 29, 2018 at 12:02 Board Certified Radiologist. This report was verified electronically.
== END 2018-01-29 16:10 | disposition home or self-care (01) ==
LOC: HROP 08:56 → HRIP 08:57 → HROP 16:10
PROVIDERS: ATTEND Family Medicine
DX: E86.0 Dehydration (principal); E44.0 Moderate protein-calorie malnutrition; G20 Parkinson's disease; G80.9 Cerebral palsy, unspecified; Z87.820 Personal history of traumatic brain injury; J44.9 Chronic obstructive pulmonary disease, unspecified; E78.5 Hyperlipidemia, unspecified; Z79.01 Long term (current) use of anticoagulants; Z79.899 Other long term (current) drug therapy
CPT/HCPCS: 49440; 85610; 85730; 99152; 99153; C1769; C1887; J0690; J1610; J2250; J3010; Q9967